=== PATIENT | female | born 1985 | race Caucasian/White ===

== ENCOUNTER 2017-04-24 14:10 | Emergency (ER) | payer MEDICAID, SELFPAY ==
[~2017-04-24 14:10] MED LIST: Iopamidol 370 76% 100 ML VIAL ONE
[2017-04-24] MEDS ORDERED: Ondansetron HCl/PF 4 MG/2 ML Vial ONE (14:33)
[2017-04-24] MEDS ORDERED: Sodium Chloride 0.9% 1,000 ML ONE (14:33)
[2017-04-24 14:42] LABS: #Basophils 0.1 thou/uL (0.0-0.2); #Eosinphils 0.2 thou/uL (0.0-0.7); #Monocytes 0.5 thou/uL (0.11-0.59); #Neutrophils 10.4 thou/uL (1.40-6.50); %Basophils 0.9 % (0.0-1.0); %Eosinophils 1.4 % (0.0-10.0); %Lymphocytes 20.9 % (21.0-51.0); %Monocytes 3.6 % (0.0-10.0); %Neutrophils 73.3 % (42.0-75.0); Hemoglobin 15.2 g/dL (12.0-16.0); Mean Corpuscular HGB CONC 33.1 g/dL (32.0-36.0); Mean Corpuscular Volume 87.4 fl (81.0-99.0); Mean Platelet Volume 7.6 fL (7.4-10.4); Platelet Count 233 thou/uL (130-400); RBC Distribution Width 11.3 % (11.5-14.5); Red Blood Cell (RBC) Count 5.24 mill/uL (4.20-5.40); White Blood Cell (WBC) Count 14.1 thou/uL (4.8-10.8)
[2017-04-24 14:44] LABS: Bilirubin Negative (Negative); Blood, Urine Negative (Negative); Clarity Clear (Clear); Glucose, Urine (Dipstick) Negative (Negative); Leukocyte Negative (Negative); Nitrite Negative (Negative); Protein, Urine (Dipstick) Negative (Neg-Trace)
[2017-04-24 14:44] LABS: BHCG - Serum Negative (NEGATIVE); Pregs Control Bar Appear? YES (CONTROL BAR)
[2017-04-24 14:57] LABS: ALT (SGPT) 14 U/L (8-55); AST (SGOT) 18 U/L (5-34); Albumin 4.6 g/dL (3.5-5.0); Alkaline Phosphatase 75 U/L (40-150); Anion Gap 12 mmol/L (10-20); BUN (Urea Nitrogen) 9 mg/dL (7.0-18.7); Bilirubin, Total 0.6 mg/dL (0.2-1.2); Calc. Creatinine Clearance 0 mL/min (70-130); Calcium 9.7 mg/dL (7.8-10.44); Carbon Dioxide 26 mmol/L (22-29); Chloride 104 mmol/L (98-107); Estimated GFR-MDRD Greater than 90; Glucose 81 mg/dL (70-105); Lipase 20 U/L (8-78); Potassium 3.7 mmol/L (3.5-5.1); Protein, Total 7.6 g/dL (6.0-8.3); Sodium 138 mmol/L (136-145)
[2017-04-24 15:06] LABS: CKMB 0.6 ng/mL (0-6.6); Troponin I Less than 0.010 ng/mL (< 0.028)
--- NOTE | 2017-04-24 16:17 | CT ---
CT OF ABDOMEN AND PELVIS PERFORMED WITH CONTRAST ENHANCEMENT: HISTORY: Upper abdominal pain. FINDINGS: The lung bases show some gravity-dependent atelectasis. Exam was taken in a slightly more arterial phase. The liver and spleen show no focal abnormalities. The spleen measures 10.9 cm in length. P ancreas and gallbladder regions are unremarkable. Right and left adrenal glands and right and left kidneys are normal in size. There is no significan t periaortic or mesenteric adenopathy. CT OF PELVIS PERFORMED WITH CONTRAST ENHANCEMENT: Follicles are seen involving the adnexal region. There is no significant free fluid. There is some what prominent enhancement to the endometrium. A small hypodense area is seen in the lower uterine segment. It appears to be endometrium. It could possibly be fluid. No signs of any tubo-ovarian a bscess. IMPRESSION: 1. Normal appendix. 2. No acute abnormalities of the abdomen or pelvis. POS: [facility]
== END 2017-04-24 16:05 | disposition short-term general hospital (02) ==
LOC: NAV ERS 14:10
DX: D72.829 Elevated white blood cell count, unspecified (principal); R10.11 Right upper quadrant pain; G43.909 Migraine, unspecified, not intractable, without status migrainosus; G40.909 Epilepsy, unspecified, not intractable, without status epilepticus; F41.9 Anxiety disorder, unspecified; F31.9 Bipolar disorder, unspecified; F17.210 Nicotine dependence, cigarettes, uncomplicated
CPT/HCPCS: 74177; 80053; 81003; 82553; 83690; 84484; 84703; 85025; 93005; 96361; 96374; 96375; 96376; J2270; J2405; J7050

== ENCOUNTER 2017-08-22 12:12 | Emergency (ER) | payer OTHER, SELFPAY ==
[2017-08-22] MEDS ORDERED: Ketorolac Tromethamine 30 MG/ML VIAL ONE (12:33)
[2017-08-22] MEDS ORDERED: Sodium Chloride 0.9% 1,000 ML ONE (12:33)
[2017-08-22] MEDS ORDERED: Clindamycin 300 MG/2 ML VIAL ONE (12:33)
== END 2017-08-22 13:45 | disposition home or self-care (01) ==
LOC: NAV ERS 12:12
DX: K04.7 Periapical abscess without sinus (principal); K03.81 Cracked tooth; G43.909 Migraine, unspecified, not intractable, without status migrainosus; F41.9 Anxiety disorder, unspecified; F31.9 Bipolar disorder, unspecified; F17.210 Nicotine dependence, cigarettes, uncomplicated
CPT/HCPCS: 96365; 96375; J1885; J3490; J7050

== ENCOUNTER 2018-02-09 15:15 | Emergency (ER) | payer SELFPAY ==
[2018-02-09] MEDS ORDERED: diphenhydrAMINE 50 MG/ML VIAL ONE (15:26)
[2018-02-09] MEDS ORDERED: predniSONE 20 MG TAB ONE (15:26)
[2018-02-09] MEDS ORDERED: Ondansetron ODT 4 MG TAB ONE (15:28)
== END 2018-02-09 16:11 | disposition home or self-care (01) ==
LOC: NAV ERS 15:15
DX: T78.40XA Allergy, unspecified, initial encounter (principal); G43.909 Migraine, unspecified, not intractable, without status migrainosus; F41.9 Anxiety disorder, unspecified; F31.9 Bipolar disorder, unspecified; F17.210 Nicotine dependence, cigarettes, uncomplicated; Z79.899 Other long term (current) drug therapy
CPT/HCPCS: 96372; 99406; J1200; J7506; Q0162

== ENCOUNTER 2018-05-07 20:35 | Emergency (ER) | payer SELFPAY ==
[2018-05-07] MEDS ORDERED: Ketorolac Tromethamine 30 MG/ML VIAL ONE (21:07)
[2018-05-07 21:12] LABS: Pregnancy Test - Urine (BHCG) Negative (Negative); Pregu Control Background? CLEAR/WHITE (CLR/WHITE); Pregu Control Bar Appear? YES (CONTROL BAR); Specific Gravity 1.031 (1.002-1.036)
[2018-05-07] MEDS ORDERED: Azithromycin 250 MG TAB ONE (21:19)
[2018-05-07] MEDS ORDERED: predniSONE 10 MG TAB ONE (21:19)
[2018-05-07] MEDS ORDERED: predniSONE 20 MG TAB ONE (21:19)
[2018-05-07] MEDS ORDERED: Guaifenesin DM 100-10/5 ML UDCUP ONE (22:12)
[2018-05-07] MEDS ORDERED: Acetaminophen/Codeine 30-300mg Tablet ONE (22:12)
--- NOTE | 2018-05-07 22:23 | RAD ---
TWO VIEW CHEST: 05/07/18 HISTORY: Cough and chest pain. Comparison 03/11/12. Lung langston are clear. No infiltrate or pneumothorax. Heart and mediastinum appear normal. Osseous st ructures appear intact as visualized on this two view study. IMPRESSION: Unremarkable chest. POS: [facility]
== END 2018-05-07 22:30 | disposition home or self-care (01) ==
LOC: NAV ERS 20:35
DX: S29.011A Strain of muscle and tendon of front wall of thorax, initial encounter (principal); J20.9 Acute bronchitis, unspecified; G43.909 Migraine, unspecified, not intractable, without status migrainosus; F41.9 Anxiety disorder, unspecified; F31.9 Bipolar disorder, unspecified; F17.210 Nicotine dependence, cigarettes, uncomplicated; Z79.899 Other long term (current) drug therapy; X58.XXXA Exposure to other specified factors, initial encounter
CPT/HCPCS: 71046; 81025; 93005; 96374; 96375; J1885; J2270; J7506; J7512; J7620

== ENCOUNTER 2018-05-18 11:29 | Emergency (ER) | payer SELFPAY ==
[2018-05-18] MEDS ORDERED: Amoxicillin/Potassium Clav 875 MG TAB ONE (11:44)
[2018-05-18] MEDS ORDERED: Lidocaine 1% (PF) 30 ML VIAL ONE (11:45)
[2018-05-18] MEDS ORDERED: cefTRIAXone\\ROCEPHIN 1 GM VIAL ONE (11:45)
== END 2018-05-18 12:11 | disposition home or self-care (01) ==
LOC: NAV ERS 11:29
DX: K03.81 Cracked tooth (principal); K04.7 Periapical abscess without sinus; K02.9 Dental caries, unspecified; F17.210 Nicotine dependence, cigarettes, uncomplicated; G43.909 Migraine, unspecified, not intractable, without status migrainosus; F31.9 Bipolar disorder, unspecified; F41.9 Anxiety disorder, unspecified; Z79.899 Other long term (current) drug therapy
CPT/HCPCS: 96372; J0696; J2001

== ENCOUNTER 2018-08-22 16:09 | Emergency (ER) | payer SELFPAY ==
[2018-08-22 17:02] LABS: Pregnancy Test - Urine (BHCG) Negative (Negative); Pregu Control Background? CLEAR/WHITE (CLR/WHITE); Pregu Control Bar Appear? YES (CONTROL BAR); Specific Gravity 1.022 (1.002-1.036)
[2018-08-22] MEDS ORDERED: Ondansetron PF 4 MG/2 ML Vial ONE (17:29)
[2018-08-22] MEDS ORDERED: Sodium Chloride 0.9% 1,000 ML ONE (17:30)
--- NOTE | 2018-08-22 18:54 | CT ---
CT ABDOMEN AND PELVIS WITH IV CONTRAST: History: Abdominal pain. Comparison: 04-24-17 FINDINGS: Lung bases are clear. The liver, spleen, kidneys, adrenal glands, and pancreas are unremarkable. Urin yanick bladder is incompletely distended. Minimal free fluid in the dependent portion of the pelvis. Lack of oral contrast limits evaluation of the bowel. No evidence of obstruction or inflammation. IMPRESSION: No significant abnormalities are demonstrated. POS: [facility]
[2018-08-24 20:34] LABS: Chlamydia by PCR Not Detected (NotDetected); GC by PCR Not Detected (NotDetected)
== END 2018-08-22 19:10 | disposition short-term general hospital (02) ==
LOC: NAV ERS 16:09
DX: R10.9 Unspecified abdominal pain (principal); F17.210 Nicotine dependence, cigarettes, uncomplicated; G43.909 Migraine, unspecified, not intractable, without status migrainosus; F41.9 Anxiety disorder, unspecified; F31.9 Bipolar disorder, unspecified; Z79.899 Other long term (current) drug therapy
CPT/HCPCS: 74177; 81025; 87491; 87591; 96361; 96374; J2405; J7050

== ENCOUNTER 2019-09-08 11:10 | Emergency (ER) | payer SELFPAY ==
--- NOTE | 2019-09-08 11:40 | RAD ---
Exam:3 views left foot HISTORY: Stepped on by horse. Pain. COMPARISON: None FINDINGS: Multiple hyperdensities in the soft tissues. Correlate for foreign body. Lisfranc alignment is maintained. No fracture, cortical irregularity or periosteal reaction. No significant soft tissue swelling. IMPRESSION: 1. No fracture or soft tissue swelling 2. Multiple radiopaque foreign bodies. Correlate clinically.
== END 2019-09-08 12:00 | disposition home or self-care (01) ==
LOC: NAV ERS 11:10
DX: S90.32XA Contusion of left foot, initial encounter (principal); G43.909 Migraine, unspecified, not intractable, without status migrainosus; F41.9 Anxiety disorder, unspecified; F31.9 Bipolar disorder, unspecified; F17.210 Nicotine dependence, cigarettes, uncomplicated; W55.19XA Other contact with horse, initial encounter

== ENCOUNTER 2020-04-09 19:24 | Emergency (ER) | payer SELFPAY ==
--- NOTE | 2020-04-09 20:21 | CT ---
Exam: Head CT without contrast HISTORY: Seizure. Syncope. COMPARISON: 03/12/2015 FINDINGS: Hemorrhage: No intraparenchymal hemorrhage or extra-axial hematoma. Brain parenchyma: Cortical harris-white matter differentiation is preserved. No mass effect or midline shift. Basilar cisterns are patent. Ventricular system: Ventricles and sulci are patent and symmetric. Calvarium: Intact. Sinuses and mastoid air cells: Adequate aeration. IMPRESSION: No acute intracranial process.
== END 2020-04-09 20:32 | disposition home or self-care (01) ==
LOC: NAV ERS 19:24
DX: S06.9X9A Unspecified intracranial injury with loss of consciousness of unspecified duration, initial encounter (principal); F31.9 Bipolar disorder, unspecified; F41.9 Anxiety disorder, unspecified; F17.210 Nicotine dependence, cigarettes, uncomplicated; W19.XXXA Unspecified fall, initial encounter; Y92.009 Unspecified place in unspecified non-institutional (private) residence as the place of occurrence of the external cause
CPT/HCPCS: 70450

== ENCOUNTER 2020-09-30 14:56 | Emergency (ER) | payer SELFPAY ==
[2020-09-30] MEDS ORDERED: HYDROcodone/Acetaminophen 10/325 mg Tablet ONE (15:11)
== END 2020-09-30 15:26 | disposition home or self-care (01) ==
LOC: NAV ERS 14:56
DX: S50.11XA Contusion of right forearm, initial encounter (principal); F17.210 Nicotine dependence, cigarettes, uncomplicated; W22.8XXA Striking against or struck by other objects, initial encounter

== ENCOUNTER 2021-05-13 10:02 | Emergency (ER) | payer SELFPAY ==
[2021-05-13] MEDS ORDERED: Acetaminophen 500 MG TAB ONE (10:34)
[2021-05-13 11:05] LABS: #Basophils 0.1 thou/uL (0.0-0.2); #Lymphocytes 0.9 thou/uL (1.20-3.40); #Monocytes 0.6 thou/uL (0.11-0.59); %Basophils 0.8 % (0.0-1.0); %Eosinophils 0.1 % (0.0-10.0); %Lymphocytes 11.4 % (21.0-51.0); %Monocytes 7.4 % (0.0-10.0); %Neutrophils 80.2 % (42.0-75.0); Hemoglobin 15.8 g/dL (12.0-16.0); Mean Corpuscular HGB CONC 33.2 g/dL (32.0-36.0); Mean Corpuscular Hemoglobin 30.9 pg (27.0-31.0); Mean Platelet Volume 8.1 fL (7.4-10.4); Platelet Count 153 thou/uL (130-400); RBC Distribution Width 11.3 % (11.5-14.5); Red Blood Cell (RBC) Count 5.13 mill/uL (4.20-5.40); White Blood Cell (WBC) Count 7.5 thou/uL (4.8-10.8)
[2021-05-13 11:15] LABS: BHCG - Serum Negative (NEGATIVE); Pregs Control Bar Appear? YES (CONTROL BAR)
[2021-05-13 11:17] LABS: ALT (SGPT) 16 U/L (8-55); AST (SGOT) 23 U/L (5-34); Albumin 4.6 g/dL (3.5-5.0); Alkaline Phosphatase 61 U/L (40-110); Anion Gap 15 mmol/L (10-20); BUN (Urea Nitrogen) 11 mg/dL (7.0-18.7); Bilirubin, Total 0.9 mg/dL (0.2-1.2); Calc. Creatinine Clearance 0 mL/min (70-130); Calcium 10.2 mg/dL (7.8-10.44); Carbon Dioxide 22 mmol/L (22-29); Chloride 104 mmol/L (98-107); Globulin 3.3 g/dL (2.4-3.5); Glucose 101 mg/dL (70-105); Potassium 3.3 mmol/L (3.5-5.1); Protein, Total 7.9 g/dL (6.0-8.3); Sodium 138 mmol/L (136-145)
[2021-05-13] MEDS ORDERED: Dexamethasone 20 MG/5 ML VIAL ONE (11:34)
[2021-05-13] MEDS ORDERED: cefTRIAXone\\ROCEPHIN 2 GM VIAL ONE (11:36)
[2021-05-13] MEDS ORDERED: Ampicillin 2 GM VIAL ONE (11:36)
[2021-05-13] MEDS ORDERED: Sodium Chloride 0.9% 100 ML ONE ×2 (11:36)
[2021-05-13] MEDS ORDERED: Sodium Chloride 0.9% 250 ML 250 ML ONE (11:36)
[2021-05-13] MEDS ORDERED: Ondansetron PF 4 MG/2 ML Vial ONE (11:49)
[2021-05-13 11:50] LABS: SARS-CoV-2 NAA Rapid Test Not Detected (NotDetected)
[2021-05-13 13:44] LABS: Color Of CSF Supernatant COLORLESS (Colorless); Tube # 1; Unspun CSF Color PINK (Colorless)
[2021-05-13 13:54] LABS: CSF RBC Count - Manual 249 /cu.mm (None Seen); CSF Source CSF; CSF WBC/NonHematics Count-Man 2 /cu.mm (0-5); Clarity Clear (Clear); Tube # 4
[2021-05-13 14:00] LABS: CSF, Glucose 71 mg/dl (40-70); CSF, Protein 50 mg/dL (15-40)
== END 2021-05-13 12:30 | disposition short-term general hospital (02) ==
LOC: NAV ERS 10:02
DX: R50.9 Fever, unspecified (principal); R51.9 Headache, unspecified; M54.2 Cervicalgia; Z20.822 Contact with and (suspected) exposure to COVID-19; F17.210 Nicotine dependence, cigarettes, uncomplicated
CPT/HCPCS: 0241U; 62270; 70450; 80053; 82945; 83605; 84157; 84703; 85025; 87040; 87070; 87077; 87149; 87186; 87205; 89051; 96365; 96367; 96375; J0290; J0696; J1100; J2405; J3370; J3490; J7050